=== PATIENT | female | born 1950 | race Caucasian/White ===

== ENCOUNTER 2024-01-27 07:22 | Observation (INO) ==
[2024-01-27 07:43] LABS: ABS Eosinophils 0.1 10^3/uL (0.0-0.5); ABS Lymphocytes 1.3 10^3/uL (1.0-4.8); ABS Monocytes 0.6 10^3/uL (0.0-0.9); ABS Neutrophils 4.1 10^3/uL (1.5-7.6); Eosinophil % 2.3 %; Hematocrit 36.8 % (35-45); Hemoglobin 12.7 g/dL (11.5-14.3); Lymphocyte % 20.7 %; Mean Corpuscular Hemoglobin 31.8 pg (27-33); Mean Corpuscular Hgb Conc 34.4 g/dL (31-36); Mean Corpuscular Volume 92.5 fL (80-97); Mean Platelet Volume 8.1 fL (7.5-11.2); Platelet Count 267 10^3/uL (150-450); Red Blood Count 3.98 10^6/uL (3.63-4.92); Red Cell Distribution Width 12.9 % (12-17)
[2024-01-27] MEDS: Iodixanol 320 (CONTRAST) 100 ML SDV IV ONE (07:43)
[2024-01-27 07:53] LABS: Activated Partial Thrombo Time 29.8 seconds (26.0-38.0); INR 0.96 (0.85-1.14)
[2024-01-27 08:25] LABS: Albumin 4.4 g/dL (3.2-5.2); Albumin/Globulin Ratio 1.7 (1-3); Calcium 9.1 mg/dL (8.6-10.3); Creatinine, Serum 0.77 mg/dL (0.51-0.95); Direct Bilirubin 0.1 mg/dL (0.03-0.18); Globulin 2.6 g/dL (2-4); Indirect Bilirubin 0.7 mg/dL (0.3-1.0); Potassium 3.9 mmol/L (3.5-5.0); Total Bilirubin 0.8 mg/dL (0.2-1.0); eGFR CKD-EPI 80.4 (>60)
[2024-01-27 08:26] LABS: HDL Cholesterol 83.5 mg/dL
[2024-01-27] MEDS ORDERED: Sulfur Hexaflouride MICROSPHR 25 MG VIAL IV PRN (09:18)
[2024-01-27 11:01] LABS: Urine Appearance Clear; Urine Bilirubin Negative (Negative); Urine Blood Negative (Negative); Urine Color Light-Yellow; Urine Glucose Negative (Negative); Urine Ketones Negative (Negative); Urine Nitrite Negative (Negative); Urine Protein Negative (Negative); Urine Specific Gravity 1.037 (1.002-1.030); Urine Urobilinogen Negative (Negative); Urine pH 7.5 (5.0-8.0)
[2024-01-27] MEDS: Enoxaparin 40 MG/0.4 ML SYR SUBCUT SCH (20:47)
[2024-01-28 07:04] LABS: ABS Eosinophils 0.2 10^3/uL (0.0-0.5); ABS Lymphocytes 1.2 10^3/uL (1.0-4.8); ABS Monocytes 0.6 10^3/uL (0.0-0.9); ABS Neutrophils 2.8 10^3/uL (1.5-7.6); Eosinophil % 4.5 %; Hematocrit 34.1 % (35-45); Hemoglobin 11.9 g/dL (11.5-14.3); Lymphocyte % 24.9 %; Mean Corpuscular Hemoglobin 32.3 pg (27-33); Mean Corpuscular Volume 92.3 fL (80-97); Platelet Count 260 10^3/uL (150-450); Red Cell Distribution Width 12.9 % (12-17); White Blood Count 4.9 10^3/uL (3.8-11.8)
[2024-01-28 07:20] LABS: Creatinine, Serum 0.67 mg/dL (0.51-0.95); Magnesium 2.1 mg/dL (1.9-2.7); Potassium 3.8 mmol/L (3.5-5.0); eGFR CKD-EPI 91.1 (>60)
[2024-01-28 08:28] LABS: Folate 17.64 ng/mL (5.90-24.80)
[2024-01-28 09:43] VITALS: BP 147/73
== END 2024-01-28 13:10 | disposition home or self-care (01) ==
LOC: ED 07:22 → EDHOLD 07:22 → MEDTELE 11:42
PROVIDERS: ADMIT Hospitalist; ATTEND Hospitalist